=== PATIENT | female | born 1945 | race Hispanic/Latino ===

== ENCOUNTER → 2017-12-27 | Outpatient (CLI) | payer OTHER ==
[2017-12-27 06:56] LABS: HEMATOCRIT 39.7 % (36-48); LYMPHOCYTES % (AUTO) 24.1 % (21.0-51.0); MEAN CORPUSCULAR HEMOGLOBIN 30.8 pg (27.0-33.0); MEAN CORPUSCULAR HGB CONC 34.2 g/dL (32.0-36.0); MEAN CORPUSCULAR VOLUME 90.1 fL (79-99); MONOCYTES % (AUTO) 6.9 % (3.0-13.0); PLATELET COUNT (AUTO) 315 K/uL (130-400); RED CELL DISTRIBUTION WIDTH 15.2 % (11.0-15.5); WHITE BLOOD COUNT (AUTO) 7.6 K/uL (4.8-10.8)
[2017-12-27 07:05] LABS: HEMOGLOBIN A1C 5.5 % (4.0-6.0)
[2017-12-27 07:14] LABS: POTASSIUM 4.1 mmol/L (3.5-5.1)
[2017-12-27 07:37] LABS: ALBUMIN 3.3 g/dL (3.5-5.0); BILIRUBIN,TOTAL 0.4 mg/dL (0.2-1.0); THYROID STIMULATING HORMONE 3.07 uIU/mL (0.36-3.74); TOTAL PROTEIN, SERUM 6.4 g/dL (6.0-8.3); URIC ACID 4.5 mg/dL (2.6-7.2)
[2017-12-27 08:13] LABS: ERYTHROCYTE SEDIMENTATION RATE 11 MM/HR (0-15)
[2017-12-27 08:26] LABS: CRP QUANTITATIVE 21.5 mg/L (0.00-9.0)
== END ==
LOC: LAB 10:00
PROVIDERS: ATTEND Internal Medicine
DX: I10 Essential (primary) hypertension (principal); E11.9 Type 2 diabetes mellitus without complications; E78.5 Hyperlipidemia, unspecified; E03.9 Hypothyroidism, unspecified
CPT/HCPCS: 36415; 80053; 80061; 82043; 83036; 84443; 84550; 85025; 85651; 86140

== ENCOUNTER → 2018-02-11 | Outpatient (CLI) | payer OTHER ==
[2018-02-11 06:44] LABS: EOSINOPHILS % (AUTO) 1.5 % (0.0-8.0); LYMPHOCYTES % (AUTO) 26.6 % (21.0-51.0); MEAN CORPUSCULAR HEMOGLOBIN 30.6 pg (27.0-33.0); MEAN CORPUSCULAR HGB CONC 33.8 g/dL (32.0-36.0); MEAN CORPUSCULAR VOLUME 90.6 fL (79-99); MONOCYTES % (AUTO) 7.5 % (3.0-13.0); NEUTROPHILS % (AUTO) 63.4 % (40.0-77.0); PLATELET COUNT (AUTO) 283 K/uL (130-400); RED BLOOD CELL COUNT(AUTO) 4.42 MIL/uL (4.00-5.50); RED CELL DISTRIBUTION WIDTH 14.8 % (11.0-15.5)
[2018-02-11 07:29] LABS: CREATININE 0.9 mg/dL (0.5-1.5); POTASSIUM 3.7 mmol/L (3.5-5.1)
[2018-02-11 07:44] LABS: ERYTHROCYTE SEDIMENTATION RATE 10 MM/HR (0-15)
[2018-02-11 08:43] LABS: HIGH SENSITIVITY CRP 8.01 mg/L (0.0-3.0)
== END | disposition home or self-care (01) ==
LOC: LAB 02-10 10:12
PROVIDERS: ATTEND Internal Medicine
DX: M35.3 Polymyalgia rheumatica (principal); R79.82 Elevated C-reactive protein (CRP)
CPT/HCPCS: 36415; 80048; 85025; 85651; 86141

== ENCOUNTER → 2018-06-06 | Outpatient (CLI) | payer OTHER ==
[2018-06-06 13:24] LABS: THYROID STIMULATING HORMONE 1.61 uIU/mL (0.36-3.74)
== END | disposition home or self-care (01) ==
LOC: LAB 11:55
PROVIDERS: ATTEND Internal Medicine
DX: E78.5 Hyperlipidemia, unspecified (principal); E03.9 Hypothyroidism, unspecified; E11.9 Type 2 diabetes mellitus without complications; I10 Essential (primary) hypertension; Z90.710 Acquired absence of both cervix and uterus
CPT/HCPCS: 36415; 80061; 84436; 84439; 84443; 86376

== ENCOUNTER → 2018-06-08 | Outpatient (CLI) | payer OTHER ==
[2018-06-08 09:06] LABS: BASOPHILS % (AUTO) 0.7 % (0.0-5.0); EOSINOPHILS % (AUTO) 6.8 % (0.0-8.0); HEMATOCRIT 39.1 % (36-48); LYMPHOCYTES % (AUTO) 13.1 % (21.0-51.0); MEAN CORPUSCULAR HEMOGLOBIN 30.5 pg (27.0-33.0); MEAN CORPUSCULAR HGB CONC 32.7 g/dL (32.0-36.0); MEAN CORPUSCULAR VOLUME 93.2 fL (79-99); MONOCYTES % (AUTO) 8.1 % (3.0-13.0); NEUTROPHILS % (AUTO) 71.3 % (40.0-77.0); PLATELET COUNT (AUTO) 315 K/uL (130-400); RED CELL DISTRIBUTION WIDTH 13.6 % (11.0-15.5); WHITE BLOOD COUNT (AUTO) 6.9 K/uL (4.8-10.8)
[2018-06-08 09:23] LABS: ALBUMIN 2.9 g/dL (3.5-5.0); BILIRUBIN,TOTAL 0.5 mg/dL (0.2-1.0); CREATININE 0.8 mg/dL (0.5-1.5); TOTAL PROTEIN, SERUM 6.4 g/dL (6.0-8.3)
== END | disposition home or self-care (01) ==
LOC: LAB 08:35
PROVIDERS: ATTEND Internal Medicine
DX: M15.9 Polyosteoarthritis, unspecified (principal); G47.09 Other insomnia; R53.83 Other fatigue; I10 Essential (primary) hypertension; E11.9 Type 2 diabetes mellitus without complications; E78.5 Hyperlipidemia, unspecified
CPT/HCPCS: 36415; 80053; 82607; 85025

== ENCOUNTER → 2018-07-05 | Outpatient (CLI) | payer OTHER | END | disposition home or self-care (01) | LOC: OIH 14:51 | PROVIDERS: ATTEND Internal Medicine Cardiovascular Disease | DX: Z13.6 Encounter for screening for cardiovascular disorders (principal) | CPT/HCPCS: 75571 ==

== ENCOUNTER → 2018-08-15 | Outpatient (CLI) | payer OTHER ==
[2018-08-15 09:34] LABS: ALBUMIN 3.6 g/dL (3.5-5.0)
[2018-08-15 09:38] LABS: BILIRUBIN,TOTAL 0.6 mg/dL (0.2-1.0); CREATININE 0.9 mg/dL (0.5-1.5); POTASSIUM 3.9 mmol/L (3.5-5.1); T4 (THYROXINE) 11.6 mcg/dL (4.7-13.3); THYROID STIMULATING HORMONE 4.69 uIU/mL (0.36-3.74); TOTAL PROTEIN, SERUM 6.6 g/dL (6.0-8.3)
== END | disposition home or self-care (01) ==
LOC: RAH 08:19
PROVIDERS: ATTEND Internal Medicine Endocrinology, Diabetes & Metabolism
DX: E04.1 Nontoxic single thyroid nodule (principal); E55.9 Vitamin D deficiency, unspecified; M81.8 Other osteoporosis without current pathological fracture
CPT/HCPCS: 36415; 76536; 80053; 82306; 84436; 84443

== ENCOUNTER → 2018-10-27 | Outpatient (CLI) | payer OTHER ==
[2018-10-27 13:43] LABS: BASOPHILS % (AUTO) 1.4 % (0.0-5.0); EOSINOPHILS % (AUTO) 1.9 % (0.0-8.0); HEMATOCRIT 38.5 % (36-48); LYMPHOCYTES % (AUTO) 21.6 % (21.0-51.0); MONOCYTES % (AUTO) 7.4 % (3.0-13.0); NEUTROPHILS % (AUTO) 67.7 % (40.0-77.0); PLATELET COUNT (AUTO) 258 K/uL (130-400); RED BLOOD CELL COUNT(AUTO) 4.24 MIL/uL (4.00-5.50); RED CELL DISTRIBUTION WIDTH 14.3 % (11.0-15.5); WHITE BLOOD COUNT (AUTO) 8.4 K/uL (4.8-10.8)
[2018-10-27 14:05] LABS: ALBUMIN 3.4 g/dL (3.5-5.0); BILIRUBIN,TOTAL 0.4 mg/dL (0.2-1.0); CREATININE 0.9 mg/dL (0.5-1.5); POTASSIUM 3.7 mmol/L (3.5-5.1); THYROID STIMULATING HORMONE 2.06 uIU/mL (0.36-3.74); TOTAL PROTEIN, SERUM 6.5 g/dL (6.0-8.3)
== END | disposition home or self-care (01) ==
LOC: LAB 13:04
PROVIDERS: ATTEND Internal Medicine
DX: I10 Essential (primary) hypertension (principal); E78.5 Hyperlipidemia, unspecified; E03.9 Hypothyroidism, unspecified
CPT/HCPCS: 36415; 80053; 80061; 82043; 83036; 84443; 85025

== ENCOUNTER → 2018-11-16 | Outpatient (CLI) | payer OTHER ==
[2018-11-16 08:12] LABS: ALBUMIN 3.7 g/dL (3.5-5.0); CREATININE 0.8 mg/dL (0.5-1.5); POTASSIUM 4.1 mmol/L (3.5-5.1); THYROID STIMULATING HORMONE 0.63 uIU/mL (0.36-3.74)
== END | disposition home or self-care (01) ==
LOC: LAB 11-15 09:28
PROVIDERS: ATTEND Internal Medicine Endocrinology, Diabetes & Metabolism
DX: E03.8 Other specified hypothyroidism (principal); E55.9 Vitamin D deficiency, unspecified; M81.8 Other osteoporosis without current pathological fracture
CPT/HCPCS: 36415; 80069; 82306; 84439; 84443

== ENCOUNTER → 2019-01-19 | Outpatient (CLI) | payer OTHER ==
[2019-01-19 06:49] LABS: BASOPHILS % (AUTO) 0.9 % (0.0-5.0); EOSINOPHILS % (AUTO) 0.3 % (0.0-8.0); HEMATOCRIT 39.9 % (36-48); LYMPHOCYTES % (AUTO) 12.7 % (21.0-51.0); MEAN CORPUSCULAR HGB CONC 33.4 g/dL (32.0-36.0); MEAN CORPUSCULAR VOLUME 89.9 fL (79-99); MONOCYTES % (AUTO) 5.8 % (3.0-13.0); NEUTROPHILS % (AUTO) 80.3 % (40.0-77.0); PLATELET COUNT (AUTO) 255 K/uL (130-400); RED BLOOD CELL COUNT(AUTO) 4.44 MIL/uL (4.00-5.50); RED CELL DISTRIBUTION WIDTH 14.3 % (11.0-15.5); WHITE BLOOD COUNT (AUTO) 6.8 K/uL (4.8-10.8)
[2019-01-19 06:59] LABS: HEMOGLOBIN A1C 5.7 % (4.0-6.0)
[2019-01-19 07:28] LABS: ALBUMIN 3.4 g/dL (3.5-5.0); BILIRUBIN,DIRECT 0.1 mg/dL (0.0-0.3); BILIRUBIN,TOTAL 0.6 mg/dL (0.2-1.0); CREATININE 0.9 mg/dL (0.5-1.5); POTASSIUM 4.1 mmol/L (3.5-5.1); TOTAL PROTEIN, SERUM 6.7 g/dL (6.0-8.3)
== END | disposition home or self-care (01) ==
LOC: LAB 01-18 10:08
PROVIDERS: ATTEND Internal Medicine
DX: E03.9 Hypothyroidism, unspecified (principal); I10 Essential (primary) hypertension
CPT/HCPCS: 36415; 80053; 80061; 80076; 82043; 82306; 82607; 83036; 85025

== ENCOUNTER → 2019-02-20 | Outpatient (CLI) | payer OTHER | END | disposition home or self-care (01) | LOC: RAH 12:15 | PROVIDERS: ATTEND Internal Medicine Endocrinology, Diabetes & Metabolism | DX: E04.1 Nontoxic single thyroid nodule (principal); E03.8 Other specified hypothyroidism; E55.9 Vitamin D deficiency, unspecified; M81.8 Other osteoporosis without current pathological fracture | CPT/HCPCS: 76536 ==

== ENCOUNTER → 2019-02-21 | Outpatient (CLI) | payer OTHER ==
[2019-02-21 08:08] LABS: ALBUMIN 3.6 g/dL (3.5-5.0); CREATININE 0.8 mg/dL (0.5-1.5); PHOSPHORUS 3.6 mg/dL (2.5-4.9); POTASSIUM 4.7 mmol/L (3.5-5.1); THYROID STIMULATING HORMONE 1.72 uIU/mL (0.36-3.74)
== END | disposition home or self-care (01) ==
LOC: RAH 10:00
PROVIDERS: ATTEND Internal Medicine Endocrinology, Diabetes & Metabolism
DX: M81.8 Other osteoporosis without current pathological fracture (principal); E03.8 Other specified hypothyroidism; E55.9 Vitamin D deficiency, unspecified
CPT/HCPCS: 36415; 80069; 82306; 84439; 84443

== ENCOUNTER → 2019-04-28 | Outpatient (CLI) | payer OTHER ==
[2019-04-28 07:58] LABS: BASOPHILS % (AUTO) 3.2 % (0.0-5.0); EOSINOPHILS % (AUTO) 0.8 % (0.0-8.0); HEMATOCRIT 41.2 % (36-48); HEMOGLOBIN A1C 5.5 % (4.0-6.0); LYMPHOCYTES % (AUTO) 11.2 % (21.0-51.0); MEAN CORPUSCULAR HEMOGLOBIN 29.4 pg (27.0-33.0); MEAN CORPUSCULAR HGB CONC 32.6 g/dL (32.0-36.0); MEAN CORPUSCULAR VOLUME 90.3 fL (79-99); MONOCYTES % (AUTO) 3.9 % (3.0-13.0); NEUTROPHILS % (AUTO) 80.9 % (40.0-77.0); PLATELET COUNT (AUTO) 275 K/uL (130-400); RED BLOOD CELL COUNT(AUTO) 4.56 MIL/uL (4.00-5.50); WHITE BLOOD COUNT (AUTO) 7.2 K/uL (4.8-10.8)
[2019-04-28 08:04] LABS: ALBUMIN 3.6 g/dL (3.5-5.0); BILIRUBIN,DIRECT 0.1 mg/dL (0.0-0.3); BILIRUBIN,TOTAL 0.7 mg/dL (0.2-1.0); TOTAL PROTEIN, SERUM 6.8 g/dL (6.0-8.3)
== END | disposition home or self-care (01) ==
LOC: LAB 04-27 11:02
PROVIDERS: ATTEND Internal Medicine
DX: E03.9 Hypothyroidism, unspecified (principal); E55.9 Vitamin D deficiency, unspecified; E78.5 Hyperlipidemia, unspecified; D72.820 Lymphocytosis (symptomatic); I10 Essential (primary) hypertension
CPT/HCPCS: 36415; 80061; 80076; 82043; 83036; 84443; 85025

== ENCOUNTER → 2019-06-22 | Outpatient (CLI) | payer OTHER ==
[2019-06-22 08:26] LABS: ALBUMIN 3.4 g/dL (3.5-5.0); CREATININE 0.8 mg/dL (0.5-1.5); PHOSPHORUS 3.3 mg/dL (2.5-4.9); POTASSIUM 3.5 mmol/L (3.5-5.1); T4 (THYROXINE) 11.3 ug/dL (4.7-13.3); THYROID STIMULATING HORMONE 1.36 uIU/mL (0.36-3.74)
== END | disposition home or self-care (01) ==
LOC: LAB 06-21 10:47
PROVIDERS: ATTEND Internal Medicine Endocrinology, Diabetes & Metabolism
DX: E03.8 Other specified hypothyroidism (principal); E55.9 Vitamin D deficiency, unspecified; M85.9 Disorder of bone density and structure, unspecified
CPT/HCPCS: 36415; 80069; 82306; 84436; 84439; 84443

== ENCOUNTER → 2019-07-10 | Outpatient (CLI) | payer OTHER | END | disposition home or self-care (01) | LOC: RAH 10:20 | PROVIDERS: ATTEND Internal Medicine | DX: Z12.31 Encounter for screening mammogram for malignant neoplasm of breast (principal) | CPT/HCPCS: 77067 ==

== ENCOUNTER → 2019-07-28 | Outpatient (CLI) | payer OTHER ==
[2019-07-28 07:53] LABS: BASOPHILS % (AUTO) 0.9 % (0.0-5.0); EOSINOPHILS % (AUTO) 1.3 % (0.0-8.0); HEMATOCRIT 41.3 % (36-48); LYMPHOCYTES % (AUTO) 19.6 % (21.0-51.0); MEAN CORPUSCULAR HEMOGLOBIN 29.2 pg (27.0-33.0); MEAN CORPUSCULAR HGB CONC 32.6 g/dL (32.0-36.0); MEAN CORPUSCULAR VOLUME 89.8 fL (79-99); MONOCYTES % (AUTO) 7.1 % (3.0-13.0); NEUTROPHILS % (AUTO) 71.1 % (40.0-77.0); PLATELET COUNT (AUTO) 270 K/uL (130-400); RED CELL DISTRIBUTION WIDTH 15.1 % (11.0-15.5); WHITE BLOOD COUNT (AUTO) 8.4 K/uL (4.8-10.8)
[2019-07-28 08:14] LABS: ALBUMIN 3.5 g/dL (3.5-5.0); BILIRUBIN,TOTAL 0.7 mg/dL (0.2-1.0); CREATININE 0.9 mg/dL (0.5-1.5); POTASSIUM 4.3 mmol/L (3.5-5.1); THYROID STIMULATING HORMONE 3.4 uIU/mL (0.36-3.74); TOTAL PROTEIN, SERUM 6.7 g/dL (6.0-8.3)
[2019-07-28 09:00] LABS: ERYTHROCYTE SEDIMENTATION RATE 5 MM/HR (0-30)
== END | disposition home or self-care (01) ==
LOC: LAB 07-27 11:32
PROVIDERS: ATTEND Internal Medicine
DX: E78.5 Hyperlipidemia, unspecified (principal); M81.0 Age-related osteoporosis without current pathological fracture; M54.2 Cervicalgia
CPT/HCPCS: 36415; 80053; 84443; 85025; 85651; 86140

== ENCOUNTER → 2019-10-26 | Outpatient (CLI) | payer BC, MEDICARE ==
[2019-10-26 10:00] LABS: BASOPHILS % (AUTO) 0.8 % (0.0-5.0); EOSINOPHILS % (AUTO) 2.4 % (0.0-8.0); HEMATOCRIT 39.5 % (36-48); LYMPHOCYTES % (AUTO) 16.7 % (21.0-51.0); MEAN CORPUSCULAR HEMOGLOBIN 28.5 pg (27.0-33.0); MEAN CORPUSCULAR HGB CONC 31.4 g/dL (32.0-36.0); MEAN CORPUSCULAR VOLUME 90.8 fL (79-99); MONOCYTES % (AUTO) 6.5 % (3.0-13.0); NEUTROPHILS % (AUTO) 73.4 % (40.0-77.0); PLATELET COUNT (AUTO) 321 K/uL (130-400); RED BLOOD CELL COUNT(AUTO) 4.35 MIL/uL (4.00-5.50); RED CELL DISTRIBUTION WIDTH 13.7 % (11.0-15.5); WHITE BLOOD COUNT (AUTO) 8.3 K/uL (4.8-10.8)
[2019-10-26 11:03] LABS: ERYTHROCYTE SEDIMENTATION RATE 12 MM/HR (0-30)
== END | disposition home or self-care (01) ==
LOC: LAB 10-25 11:48
PROVIDERS: ATTEND Internal Medicine
DX: I10 Essential (primary) hypertension (principal); M15.9 Polyosteoarthritis, unspecified
CPT/HCPCS: 36415; 85025; 85651; 86140

== ENCOUNTER → 2019-12-21 | Outpatient (CLI) | payer OTHER, MEDICARE ==
[~2019-12-21] MED LIST: APIX2.5T PO; HYDR25TA PO; LEVO112T4 PO; LISI-617 PO; LISI10TA7 PO; METO25 PO
[2019-12-21 08:42] LABS: BASOPHILS % (AUTO) 1.2 % (0.0-5.0); EOSINOPHILS % (AUTO) 3.3 % (0.0-8.0); HEMATOCRIT 39.5 % (36-48); LYMPHOCYTES % (AUTO) 21.7 % (21.0-51.0); MEAN CORPUSCULAR HEMOGLOBIN 28.2 pg (27.0-33.0); MEAN CORPUSCULAR HGB CONC 32.2 g/dL (32.0-36.0); MEAN CORPUSCULAR VOLUME 87.6 fL (79-99); NEUTROPHILS % (AUTO) 66.5 % (40.0-77.0); PLATELET COUNT (AUTO) 308 K/uL (130-400); RED BLOOD CELL COUNT(AUTO) 4.51 MIL/uL (4.00-5.50); RED CELL DISTRIBUTION WIDTH 13.9 % (11.0-15.5); WHITE BLOOD COUNT (AUTO) 6.9 K/uL (4.8-10.8)
[2019-12-21 09:09] LABS: ALBUMIN 3.4 g/dL (3.5-5.0); BILIRUBIN,TOTAL 0.5 mg/dL (0.2-1.0); CREATININE 0.9 mg/dL (0.5-1.5); POTASSIUM 4.1 mmol/L (3.5-5.1); THYROID STIMULATING HORMONE 0.21 uIU/mL (0.36-3.74); TOTAL PROTEIN, SERUM 6.9 g/dL (6.0-8.3)
[2019-12-21 09:19] LABS: CRP QUANTITATIVE 6.1 mg/L (0.00-9.0)
[2019-12-21 09:53] LABS: ERYTHROCYTE SEDIMENTATION RATE 17 MM/HR (0-30)
== END | disposition home or self-care (01) ==
LOC: LAB 08:11
PROVIDERS: ATTEND Internal Medicine
DX: E03.9 Hypothyroidism, unspecified (principal); E78.5 Hyperlipidemia, unspecified; R74.8 Abnormal levels of other serum enzymes
CPT/HCPCS: 36415; 80053; 84439; 84443; 85025; 85651; 86140

== ENCOUNTER 2020-03-15 15:20 | Emergency (ER) | payer OTHER, MEDICARE ==
[2020-03-15] MEDS ORDERED: ACETAMINOPHEN 325 MG TAB ONE (17:02)
[2020-03-15] MEDS ORDERED: CEFTRIAXONE SODIUM 1 GM ONE (18:39)
[2020-03-15] MEDS ORDERED: AZITHROMYCIN 250 MG TABLET PO ONE (18:41)
[2020-03-15] MEDS ORDERED: SODIUM CHLORIDE 0.9% 100 ML IV ONE (18:44)
[2020-03-15] MEDS ORDERED: SODIUM CHLORIDE 0.9% 500ML 500 ML IV ONE (19:48)
== END 2020-03-15 21:00 | disposition home or self-care (01) ==
LOC: EDH 15:20
DX: U07.1 COVID-19 (principal); R53.83 Other fatigue; I10 Essential (primary) hypertension; M19.90 Unspecified osteoarthritis, unspecified site; Z90.710 Acquired absence of both cervix and uterus
CPT/HCPCS: 36415; 71045; 80053; 81001; 82550; 83605; 83874; 83880; 84145; 84484; 85025; 85610; 85730; 87040 ×2; 87088; 87804 ×2; 93005; 96374; 99285; J0696; J7040

== ENCOUNTER 2020-03-18 00:56 | Inpatient (IN) | payer OTHER, MEDICARE ==
[~2020-03-18] VITALS: Ht 154.9 cm; Wt 68.9 kg
[2020-03-18] MEDS ORDERED: ONDANSETRON HCL 4 MG/2 ML VIAL ONE (02:05)
[2020-03-18] MEDS ORDERED: ACETAMINOPHEN EXTRA STRENGTH 500 MG TABLET ONE (02:05)
[2020-03-18 02:11] LABS: BASOPHILS % (AUTO) 0.2 % (0.0-5.0); EOSINOPHILS % (AUTO) 0.2 % (0.0-8.0); HEMATOCRIT 40.3 % (36-48); LYMPHOCYTES % (AUTO) 23.1 % (21.0-51.0); MEAN CORPUSCULAR HEMOGLOBIN 28.3 pg (27.0-33.0); MEAN CORPUSCULAR HGB CONC 33.3 g/dL (32.0-36.0); MONOCYTES % (AUTO) 8.7 % (3.0-13.0); NEUTROPHILS % (AUTO) 67.6 % (40.0-77.0); PLATELET COUNT (AUTO) 191 K/uL (130-400); RED BLOOD CELL COUNT(AUTO) 4.74 MIL/uL (4.00-5.50); RED CELL DISTRIBUTION WIDTH 13.7 % (11.0-15.5); WHITE BLOOD COUNT (AUTO) 4.3 K/uL (4.8-10.8)
[2020-03-18 02:17] LABS: ABG BASE EXCESS -4.1 mmol/L (-2.0-3.0); ABG HCO3 17.7 mmol/L (21.0-28.0); ABG OXYGEN SATURATION 87.1 % (95.0-99.0); ABG PCO2 25 mmHg (32-45)
[2020-03-18 02:24] LABS: INR 0.87 (0.85-1.15); PARTIAL THROMBOPLASTIN TIME 32.1 SEC (26.3-35.5); PROTHROMBIN TIME 9.4 SEC (9.6-11.6)
[2020-03-18 02:25] LABS: CARBON DIOXIDE 26 mmol/L (21-32); CHLORIDE 102 mmol/L (101-111); CREATININE 0.9 mg/dL (0.5-1.5); GLOMERULAR FILTR. RATE CALC 65 mL/min (>60); GLUCOSE,RANDOM 102 mg/dL (70-105); POTASSIUM 3.5 mmol/L (3.5-5.1); SODIUM SERUM 137 mmol/L (136-145); UREA NITROGEN, BLOOD 16 mg/dL (7-18)
[2020-03-18 02:35] LABS: ALANINE AMINOTRANSFERASE 19 U/L (12-78); ALBUMIN 3.3 g/dL (3.5-5.0); ASPARTATE AMINOTRANSFERASE 26 U/L (10-37); BILIRUBIN,TOTAL 0.4 mg/dL (0.2-1.0); CREATINE KINASE, TOTAL 47 U/L (21-232); LIPASE 110 U/L (114-286); MYOGLOBIN 40 ng/mL (10-92); TOTAL PROTEIN, SERUM 6.7 g/dL (6.0-8.3); TROPONIN I < 0.04 ng/mL (0.00-0.06)
[2020-03-18 02:42] LABS: B-TYPE NATRIURETIC PEPTIDE 15 pg/mL (0-100)
[2020-03-18] MEDS ORDERED: IOHEXOL-350 75 ML VIAL IV ONE (03:03)
[2020-03-18] MEDS ORDERED: DOXYCYCLINE 100MG+NS 250ML IV SCH (03:30)
[2020-03-18] MEDS ORDERED: CEFTRIAXONE SODIUM 1 GM IVP SCH (03:30)
[2020-03-18] MEDS ORDERED: DOXYCYCLINE HYCLATE 100 MG TABLET PO ONE (04:10)
[2020-03-18] MEDS ORDERED: GUAIFENESIN-DM 200/20 MG 10 ML PO PRN (04:15)
[2020-03-18] MEDS ORDERED: ACETAMINOPHEN 325 MG TAB PO PRN ×2 (04:15)
[2020-03-18] MEDS ORDERED: NITROGLYCERIN 0.4 MG SL TAB SL PRN (04:15)
[2020-03-18] MEDS ORDERED: DOXYCYCLINE 100MG+NS 250ML 250 ML IV SCH ×2 (05:00→21:00)
[2020-03-18 06:50] LABS: BASOPHILS % (AUTO) 0.3 % (0.0-5.0); HEMATOCRIT 38.5 % (36-48); LYMPHOCYTES % (AUTO) 19.4 % (21.0-51.0); MEAN CORPUSCULAR VOLUME 84.8 fL (79-99); MONOCYTES % (AUTO) 7.3 % (3.0-13.0); NEUTROPHILS % (AUTO) 72.7 % (40.0-77.0); PLATELET COUNT (AUTO) 163 K/uL (130-400); RED BLOOD CELL COUNT(AUTO) 4.54 MIL/uL (4.00-5.50); RED CELL DISTRIBUTION WIDTH 13.6 % (11.0-15.5); WHITE BLOOD COUNT (AUTO) 3.9 K/uL (4.8-10.8)
[2020-03-18 06:51] LABS: ALBUMIN 2.9 g/dL (3.5-5.0); BILIRUBIN,TOTAL 0.4 mg/dL (0.2-1.0); CREATININE 0.7 mg/dL (0.5-1.5); CRP QUANTITATIVE 38.1 mg/L (0.00-9.0); TOTAL PROTEIN, SERUM 5.8 g/dL (6.0-8.3)
[2020-03-18] MEDS ORDERED: AZITHROMYCIN 500MG+NS 250ML 250 ML IV ONE (08:57)
[2020-03-18] MEDS ORDERED: ENOXAPARIN SODIUM 40 MG/0.4 ML SYRINGE SQ ONE (08:57)
[2020-03-18] MEDS ORDERED: CEFTRIAXONE SODIUM 1 GM ONE (08:57)
[2020-03-18] MEDS ORDERED: FAMOTIDINE/PF 20 MG/2 ML VIAL IV ONE (08:58)
[2020-03-18 09:56] LABS: APPEARANCE,URINE Clear (CLEAR); BILIRUBIN,URINE Negative (NEGATIVE); COLOR,URINE Yellow (YELLOW); GLUCOSE, URINE (UA) Negative (NEGATIVE); KETONES,URINE Trace mg/dL (NEGATIVE); LEUKOCYTE ESTERASE ,URINE Negative (NEGATIVE); NITRATE,URINE Negative (NEGATIVE); OCCULT BLOOD,URINE Negative (NEGATIVE); PH,URINE 5.5 (5.0-8.0); PROTEIN,URINE Trace mg/dL (NEGATIVE); UROBILINOGEN,URINE 0.2 mg/dL (0.2-1.0)
[2020-03-18 10:06] LABS: BACTERIA,URINE Rare /HPF (None Seen); RBC,URINE None Seen /HPF (0-1); WBC,URINE 0-1 /HPF (0-1)
[2020-03-18] MEDS ORDERED: METHYLPREDNISOLONE SOD SUCC 40MG/ML 1ML ONE ×2 (11:45→17:35)
[2020-03-18] MEDS ORDERED: POTASSIUM CHLORIDE 10% ELIXIR 20 MEQ/15 ML UDCUP PO PRN (14:00)
[2020-03-18] MEDS ORDERED: LIDOCAINE HCL-MPF 1% 2ML VIAL IV PRN (14:00)
[2020-03-18] MEDS ORDERED: POTASSIUM CHLORIDE 20MEQ/100ML 100 ML IV PRN (14:00)
[2020-03-18] MEDS ORDERED: POTASSIUM CHLORIDE 20 MEQ ERTAB PO PRN (14:00)
[2020-03-18] MEDS ORDERED: POTASSIUM CHLORIDE 20 MEQ ERTAB PO ONE ×2 (15:20→17:35)
[2020-03-18] MEDS: FAMOTIDINE/PF 20 MG/2 ML VIAL IV SCH (17:53)
[2020-03-18] MEDS: ENOXAPARIN SODIUM 40 MG/0.4 ML SYRINGE SQ SCH (17:54)
[2020-03-18] MEDS: METHYLPREDNISOLONE SOD SUCC 40MG/ML 1ML IVP SCH ×2 (17:54→20:46)
[2020-03-18] MEDS: CEFTRIAXONE SODIUM 1 GM IVP SCH (20:46)
[2020-03-18] MEDS: DOXYCYCLINE HYCLATE 100 MG TABLET PO SCH (20:46)
[2020-03-18 21:14] VITALS: BP 152/75
[2020-03-18] MEDS ORDERED: METO25 PO (22:15)
[2020-03-18] MEDS ORDERED: LISI-617 PO (22:17)
[2020-03-18] MEDS ORDERED: LEVO112T4 PO (22:17)
[2020-03-18] MEDS: ONDANSETRON HCL 4 MG/2 ML VIAL IV PRN (22:55)
[2020-03-18] MEDS ORDERED: METOPROLOL TARTRATE 25 MG TAB ONE (22:59)
[2020-03-18 23:03] VITALS: BP 155/77
[2020-03-19 03:00] VITALS: BP 185/95
[2020-03-19 04:28] LABS: HEMATOCRIT 41.1 % (36-48); LYMPHOCYTES % (AUTO) 19.7 % (21.0-51.0); MEAN CORPUSCULAR HEMOGLOBIN 28.3 pg (27.0-33.0); MEAN CORPUSCULAR HGB CONC 33.3 g/dL (32.0-36.0); MEAN CORPUSCULAR VOLUME 84.9 fL (79-99); MONOCYTES % (AUTO) 2.5 % (3.0-13.0); NEUTROPHILS % (AUTO) 77.4 % (40.0-77.0); PLATELET COUNT (AUTO) 193 K/uL (130-400); RED BLOOD CELL COUNT(AUTO) 4.84 MIL/uL (4.00-5.50); RED CELL DISTRIBUTION WIDTH 13.6 % (11.0-15.5); WHITE BLOOD COUNT (AUTO) 2.4 K/uL (4.8-10.8)
[2020-03-19] MEDS ORDERED: HYDRALAZINE HCL 20 MG/ML VIAL IV PRN (05:00)
[2020-03-19 05:26] LABS: ALANINE AMINOTRANSFERASE 24 U/L (12-78); ALBUMIN 3.2 g/dL (3.5-5.0); ASPARTATE AMINOTRANSFERASE 24 U/L (10-37); BILIRUBIN,TOTAL 0.3 mg/dL (0.2-1.0); CARBON DIOXIDE 23 mmol/L (21-32); CHLORIDE 101 mmol/L (101-111); CREATININE 0.8 mg/dL (0.5-1.5); GLOMERULAR FILTR. RATE CALC 75 mL/min (>60); GLUCOSE,RANDOM 163 mg/dL (70-105); LACTATE DEHYDROGENASE 221 U/L (81-234); POTASSIUM 3.8 mmol/L (3.5-5.1); SODIUM SERUM 136 mmol/L (136-145); UREA NITROGEN, BLOOD 10 mg/dL (7-18)
[2020-03-19] MEDS ORDERED: METOPROLOL TARTRATE 25 MG TAB ONE (07:13)
[2020-03-19] MEDS ORDERED: LISINOPRIL 5 MG TABLET ONE (07:14)
[2020-03-19] MEDS: CEFTRIAXONE SODIUM 1 GM IVP SCH (07:19)
[2020-03-19] MEDS: DOXYCYCLINE HYCLATE 100 MG TABLET PO SCH (07:19)
[2020-03-19] MEDS: FAMOTIDINE/PF 20 MG/2 ML VIAL IV SCH (07:19)
[2020-03-19] MEDS: ENOXAPARIN SODIUM 40 MG/0.4 ML SYRINGE SQ SCH (07:20)
[2020-03-19] MEDS ORDERED: LEVOTHYROXINE 112 MCG TABLET PO SCH (07:30)
--- NOTE | 2020-03-19 07:30 | NUR ---
AM ASSESSMENT PT LAYING IN BED. PT UPSET REGARDING ELEVATED BP & HOME MEDICATIONS. HOME MEDS RESUMED @ GIVEN @ THIS TIME. A/O X 3. SOB ON EXERTION. NO DISTRESS NOTED. DENIES CHEST PAIN OR DISCOMFORT. DENIES PALPITATIONS. TELE: SR. DENIES NAUSEA. PT HAVING DIARRHEA. UP AD NAET. INSTRUCTED TO CALL FOR ASSISTANCE. CALL SOPHIE W/IN REACH.
[2020-03-19] MEDS: ONDANSETRON HCL 4 MG/2 ML VIAL IV PRN (08:03)
[2020-03-19] MEDS: METHYLPREDNISOLONE SOD SUCC 40MG/ML 1ML IVP SCH (08:03)
[2020-03-19 08:15] VITALS: BP 163/92
[2020-03-19] MEDS ORDERED: METOPROLOL TARTRATE 25 MG TAB PO SCH (09:00)
[2020-03-19] MEDS ORDERED: LISINOPRIL 5 MG TABLET PO SCH ×2 (09:00→14:30)
--- NOTE | 2020-03-19 11:28 | NUR ---
JOSE J NOTE- INITIAL ASSESSMENT SPOKE TO FAMILY ON PHONE - DAUGHTER [employer] [employer] WHO WILL PROVIDE TRANSPORT- LIVES W DTR, IS EMPLOYED, HAS NOT DME OR CHRONIC LUNG CONDITIONS, DCP HOME Addendum: 03/19/20 at 1136 by INO RAYO RN CM Amended: Links added.
[2020-03-19 11:30] VITALS: BP 153/89
[2020-03-19 12:30] VITALS: BP 155/98
[2020-03-19 14:00] VITALS: BP_SYST 158; BP_SYST 161; BP_DIAS 84; BP_DIAS 92
--- NOTE | 2020-03-19 14:11 | NUR ---
MD NOTIFICATION DR DE GUZMAN NOTIFIED OF BP RECHECK 161/84 AFTER LISINOPRIL 5 MG PO & HYDROCHLOROTHIAZIDE 12.5 MG PO WERE GIVEN EARLIER.
[2020-03-19] MEDS ORDERED: HYDROCHLOROTHIAZIDE 25 MG TABLET PO SCH ×2 (14:30)
--- NOTE | 2020-03-19 15:16 | NUR ---
MD NOTIFICATION BP RECHECK 149/98 AFTER 2ND DOSE OF HCT 12.5 MG PO GIVEN; DR DE GUZMAN NOTIFIED.
[2020-03-19 15:30] VITALS: BP 149/98
--- NOTE | 2020-03-19 15:30 | NUR ---
DISCHARGE PT INFORMED DR DE GUZMAN PLANS TO DC PT HOME TODAY, PENDING DC ORDER TO BE ENTERED. TELE SANDRA REMOVED @ THIS TIME. IV DC'D.
[2020-03-19] MEDS ORDERED: LISI10TA7 PO (16:48)
[2020-03-19] MEDS ORDERED: APIX2.5T PO (16:48)
[2020-03-19] MEDS ORDERED: HYDR25TA PO (16:48)
--- NOTE | 2020-03-19 17:23 | NUR ---
DISCHARGE VERBAL & WRITTEN DISCHARGE INSTRUCTIONS REVIEWED & GIVEN TO PT. QUESTIONS ENCOURAGED & CLARIFIED. PROPER CARE, MGT, & PREVENTION OF COVID/CHEST PAIN/SOB REVIEWED. NEW PRESCRIBED MEDICATIONS REVIEWED. PT INFORMED PRESCRIPTION TRANSMITTED TO PHARMACY IN FILE. PT TO GATHER PERSONAL BELONGINGS. WILL NOTIFY STAFF FAMILY ARRIVES TO HOSPITAL TO TAKE PT HOME.
--- NOTE | 2020-03-19 17:50 | NUR ---
DISCHARGE FAMILY HERE TO TAKE PT HOME. PT TAKEN TO PRIVATE VEHICLE VIA WC BY Danis VIVAS RN.
[2020-03-20] MEDS ORDERED: LEVOTHYROXINE 112 MCG TABLET PO SCH (06:30)
== END 2020-03-19 17:50 | disposition home or self-care (01) | DRG 177 ==
LOC: EDH 00:56 → EDHIP 04:08 → 2AH 20:37
PROVIDERS: ADMIT Internal Medicine; ATTEND Internal Medicine
DX: U07.1 COVID-19 (principal); J12.89 Other viral pneumonia; E03.9 Hypothyroidism, unspecified; R07.89 Other chest pain; I10 Essential (primary) hypertension; M19.90 Unspecified osteoarthritis, unspecified site; Z90.710 Acquired absence of both cervix and uterus
CPT/HCPCS: 36415; 36600; 71045; 71275; 80053; 81001; 82550; 82728; 82803; 83605; 83615; 83690; 83874; 83880; 84145; 84484; 85025; 85378; 85610; 85730; 86140; 87040; 87088; 93005; 99291; G0378; J0360; J0456; J0696; J1650; J2405; J2920; J3490; Q9967; U0003

== ENCOUNTER → 2020-04-12 | Outpatient (CLI) | payer OTHER, MEDICARE ==
[~2020-04-12] MED LIST changes: -LISI-617 PO
[2020-04-12 11:46] LABS: ALBUMIN 3.2 g/dL (3.5-5.0); CREATININE 0.9 mg/dL (0.5-1.5); PHOSPHORUS 3.2 mg/dL (2.5-4.9); POTASSIUM 3.7 mmol/L (3.5-5.1); T4 (THYROXINE) 11.6 ug/dL (4.7-13.3); THYROID STIMULATING HORMONE 0.27 uIU/mL (0.36-3.74)
== END | disposition home or self-care (01) ==
LOC: RAH 10:43
PROVIDERS: ATTEND Internal Medicine Endocrinology, Diabetes & Metabolism
DX: E04.1 Nontoxic single thyroid nodule (principal); E55.9 Vitamin D deficiency, unspecified; E03.8 Other specified hypothyroidism; M81.8 Other osteoporosis without current pathological fracture; E04.9 Nontoxic goiter, unspecified
CPT/HCPCS: 36415; 76536; 80069; 82306; 84436; 84443

== ENCOUNTER → 2020-12-05 | Outpatient (CLI) | payer OTHER, MEDICARE ==
[~2020-12-05] MED LIST changes: +LISI10TA24 PO; -LISI10TA7 PO
[2020-12-05 11:45] LABS: ALBUMIN 3.9 g/dL (3.5-5.0); BILIRUBIN,DIRECT 0.1 mg/dL (0.0-0.3); BILIRUBIN,TOTAL 0.7 mg/dL (0.2-1.0); PHOSPHORUS 3.3 mg/dL (2.5-4.9); POTASSIUM 4.7 mmol/L (3.5-5.1); THYROID STIMULATING HORMONE 5.45 uIU/mL (0.36-3.74); TOTAL PROTEIN, SERUM 8.1 g/dL (6.0-8.3)
== END | disposition home or self-care (01) ==
LOC: LAB 10:05
PROVIDERS: ATTEND Internal Medicine Endocrinology, Diabetes & Metabolism
DX: E03.8 Other specified hypothyroidism (principal); E55.9 Vitamin D deficiency, unspecified; M81.8 Other osteoporosis without current pathological fracture
CPT/HCPCS: 36415; 80069; 80076; 82306; 84439; 84443

== ENCOUNTER → 2021-04-25 | Outpatient (CLI) | payer BC, MEDICARE ==
[2021-04-25 09:58] LABS: ALBUMIN 3.6 g/dL (3.5-5.0); BILIRUBIN,DIRECT 0.1 mg/dL (0.0-0.3); BILIRUBIN,TOTAL 0.6 mg/dL (0.2-1.0); CREATININE 0.8 mg/dL (0.5-1.5); PHOSPHORUS 3.3 mg/dL (2.5-4.9); POTASSIUM 3.8 mmol/L (3.5-5.1); THYROID STIMULATING HORMONE 1.9 uIU/mL (0.36-3.74); TOTAL PROTEIN, SERUM 6.7 g/dL (6.0-8.3)
== END | disposition home or self-care (01) ==
LOC: RAH 08:53
PROVIDERS: ATTEND Internal Medicine
DX: Z12.31 Encounter for screening mammogram for malignant neoplasm of breast (principal); E03.8 Other specified hypothyroidism
CPT/HCPCS: 36415; 77067; 80069; 80076; 82306; 84439; 84443

== ENCOUNTER → 2021-10-21 | Outpatient (CLI) | payer OTHER, MEDICARE ==
[2021-10-21 07:53] LABS: ALBUMIN 3.6 g/dL (3.5-5.0); CREATININE 0.8 mg/dL (0.5-1.5); PHOSPHORUS 3.7 mg/dL (2.5-4.9); POTASSIUM 4.3 mmol/L (3.5-5.1); THYROID STIMULATING HORMONE 0.94 uIU/mL (0.36-3.74)
== END | disposition home or self-care (01) ==
LOC: LAB 07:00
PROVIDERS: ATTEND Internal Medicine Endocrinology, Diabetes & Metabolism
DX: E03.8 Other specified hypothyroidism (principal); E55.9 Vitamin D deficiency, unspecified; M85.9 Disorder of bone density and structure, unspecified
CPT/HCPCS: 36415; 80069; 82306; 84439; 84443

== ENCOUNTER → 2022-10-06 | Outpatient (CLI) | payer OTHER, MEDICARE ==
[2022-10-06 07:29] LABS: BASOPHILS % (AUTO) 0.6 % (0.0-5.0); EOSINOPHILS % (AUTO) 2.6 % (0.0-8.0); HEMATOCRIT 44.4 % (36-48); LYMPHOCYTES % (AUTO) 23.4 % (21.0-51.0); MEAN CORPUSCULAR HEMOGLOBIN 31.6 pg (27.0-33.0); MEAN CORPUSCULAR HGB CONC 33.3 g/dL (32.0-36.0); MEAN CORPUSCULAR VOLUME 94.9 fL (79-99); MONOCYTES % (AUTO) 7.4 % (3.0-13.0); NEUTROPHILS % (AUTO) 65.2 % (40.0-77.0); PLATELET COUNT (AUTO) 212 K/uL (130-400); RED BLOOD CELL COUNT(AUTO) 4.68 MIL/uL (4.00-5.50); RED CELL DISTRIBUTION WIDTH 12.9 % (11.0-15.5); WHITE BLOOD COUNT (AUTO) 7.2 K/uL (4.8-10.8)
[2022-10-06 07:55] LABS: ALBUMIN 3.2 g/dL (3.5-5.0); CREATININE 0.9 mg/dL (0.5-1.5); PHOSPHORUS 2.8 mg/dL (2.5-4.9); POTASSIUM 3.7 mmol/L (3.5-5.1); THYROID STIMULATING HORMONE 7.83 uIU/mL (0.36-3.74); TOTAL PROTEIN, SERUM 6.5 g/dL (6.0-8.3)
== END | disposition home or self-care (01) ==
LOC: LAB 06:40
PROVIDERS: ATTEND Internal Medicine
DX: I10 Essential (primary) hypertension (principal); E03.9 Hypothyroidism, unspecified
CPT/HCPCS: 36415; 80053; 82306; 84100; 84439; 84443; 85025

== ENCOUNTER 2022-11-26 07:26 | Emergency (ER) | payer OTHER, MEDICARE ==
[~2022-11-26] VITALS: Ht 157.5 cm; Wt 74.8 kg
[2022-11-26 07:32] VITALS: BP 129/81
== END 2022-11-26 08:19 | disposition home or self-care (01) ==
LOC: EDH 07:26
DX: S20.219A Contusion of unspecified front wall of thorax, initial encounter (principal); Y92.488 Other paved roadways as the place of occurrence of the external cause; V89.2XXA Person injured in unspecified motor-vehicle accident, traffic, initial encounter; Y93.I9 Activity, other involving external motion; Y99.8 Other external cause status; Z79.899 Other long term (current) drug therapy
CPT/HCPCS: 71045; 93005

== ENCOUNTER → 2023-01-13 | Outpatient (CLI) | payer OTHER, MEDICARE ==
[2023-01-13 09:40] LABS: ALBUMIN 3.7 g/dL (3.5-5.0); CREATININE 0.9 mg/dL (0.5-1.5); PHOSPHORUS 3.9 mg/dL (2.5-4.9); POTASSIUM 4.1 mmol/L (3.5-5.1); T4 (THYROXINE) 12.9 ug/dL (4.7-13.3); THYROID STIMULATING HORMONE 1.65 uIU/mL (0.36-3.74)
== END | disposition home or self-care (01) ==
LOC: LAB 07:25
PROVIDERS: ATTEND Internal Medicine Endocrinology, Diabetes & Metabolism
DX: M81.8 Other osteoporosis without current pathological fracture (principal); E03.8 Other specified hypothyroidism; E50.3 Vitamin A deficiency with corneal ulceration and xerosis
CPT/HCPCS: 36415; 80069; 82306; 84436; 84443

== ENCOUNTER 2023-02-28 19:00 | Emergency (ER) | payer OTHER, MEDICARE ==
[~2023-02-28] VITALS: Ht 154.9 cm; Wt 74.8 kg
[2023-02-28 19:31] VITALS: BP 172/97
[2023-02-28 19:35] LABS: BASOPHILS % (AUTO) 0.9 % (0.0-5.0); EOSINOPHILS % (AUTO) 1.7 % (0.0-8.0); HEMATOCRIT 45.2 % (36-48); LYMPHOCYTES % (AUTO) 16.1 % (21.0-51.0); MEAN CORPUSCULAR HEMOGLOBIN 31.2 pg (27.0-33.0); MEAN CORPUSCULAR HGB CONC 33.8 g/dL (32.0-36.0); MEAN CORPUSCULAR VOLUME 92.2 fL (79-99); MONOCYTES % (AUTO) 7.4 % (3.0-13.0); NEUTROPHILS % (AUTO) 73.7 % (40.0-77.0); PLATELET COUNT (AUTO) 171 K/uL (130-400); RED CELL DISTRIBUTION WIDTH 12.6 % (11.0-15.5); WHITE BLOOD COUNT (AUTO) 5.4 K/uL (4.8-10.8)
[2023-02-28 19:47] LABS: CREATININE 0.9 mg/dL (0.5-1.5); POTASSIUM 3.6 mmol/L (3.5-5.1)
[2023-02-28 19:52] LABS: ALBUMIN 3.8 g/dL (3.5-5.0); TOTAL PROTEIN, SERUM 7.2 g/dL (6.0-8.3)
[2023-02-28] MEDS ORDERED: VALA10002 PO (20:11)
[2023-02-28] MEDS ORDERED: IBUP-1493 PO (20:11)
[2023-02-28] MEDS ORDERED: GABA300C PO (20:11)
== END 2023-02-28 20:31 | disposition home or self-care (01) ==
LOC: EDH 19:00
DX: B02.9 Zoster without complications (principal); Z79.899 Other long term (current) drug therapy; Z98.890 Other specified postprocedural states
CPT/HCPCS: 36415; 71045; 80053; 84484; 85025; 93005

== ENCOUNTER 2023-03-02 22:57 | Inpatient (IN) | payer OTHER, MEDICARE ==
[~2023-03-02] VITALS: Ht 162.6 cm; Wt 79.0 kg
[~2023-03-02 22:57] MED LIST changes: +GABA300C PO; +IBUP-1493 PO; +VALA10002 PO
[2023-03-02] MEDS ORDERED: NOREPINEPHRINE BITARTRATE 1 MG/1 ML ML IV ONE (23:04)
[2023-03-02] MEDS ORDERED: PHENYLEPHRINE HCL 10 MG/ML 1ML VIAL IV ONE (23:17)
[2023-03-02] MEDS ORDERED: FENTANYL 1000MCG+NS 100ML 100 ML IV ONE (23:29)
[2023-03-02] MEDS ORDERED: MIDAZOLAM HCL 5 MG/ML 2ML VIAL IV ONE (23:29)
[2023-03-02] MEDS: FENTANYL 1000MCG+NS 100ML 100 ML IV SCH (23:29)
[2023-03-02] MEDS: MIDAZOLAM 50MG-0.9% NS 50ML 50 ML IV SCH (23:29)
[2023-03-02] MEDS ORDERED: NOREPINEPHRIN 4MG/NS 250ML 250 ML IV SCH (23:30)
[2023-03-02] MEDS ORDERED: ETOMIDATE 20MG VIAL IVP SCH (23:30)
[2023-03-02] MEDS ORDERED: ROCURONIUM BROMIDE 100 MG in 0.9%NACL 100ML 100 ML IV SCH (23:30)
[2023-03-02] MEDS ORDERED: ZOSYN 3.375GM+NS 50ML 50 ML IVPB STA (23:47)
[2023-03-02 23:48] LABS: BASOPHILS % (AUTO) 0.7 % (0.0-5.0); EOSINOPHILS % (AUTO) 0.8 % (0.0-8.0); HEMATOCRIT 38.8 % (36-48); LYMPHOCYTES % (AUTO) 23.4 % (21.0-51.0); MEAN CORPUSCULAR HEMOGLOBIN 30.9 pg (27.0-33.0); MEAN CORPUSCULAR HGB CONC 33.8 g/dL (32.0-36.0); MEAN CORPUSCULAR VOLUME 91.5 fL (79-99); MONOCYTES % (AUTO) 8.6 % (3.0-13.0); NEUTROPHILS % (AUTO) 65.9 % (40.0-77.0); PLATELET COUNT (AUTO) 183 K/uL (130-400); RED BLOOD CELL COUNT(AUTO) 4.24 MIL/uL (4.00-5.50); RED CELL DISTRIBUTION WIDTH 12.4 % (11.0-15.5); WHITE BLOOD COUNT (AUTO) 8.4 K/uL (4.8-10.8)
[2023-03-02 23:50] LABS: BILIRUBIN,URINE NEGATIVE (NEGATIVE); COLOR,URINE LIGHT-YELLOW (YELLOW); GLUCOSE, URINE (UA) NEGATIVE (NEGATIVE); KETONES,URINE NEGATIVE (NEGATIVE); LEUKOCYTE ESTERASE ,URINE NEGATIVE Leu/uL (NEGATIVE); NITRATE,URINE NEGATIVE (NEGATIVE); OCCULT BLOOD,URINE NEGATIVE (NEGATIVE); PH,URINE 5.5 (5.0-8.0); PROTEIN,URINE 10 mg/dL (NEGATIVE); UROBILINOGEN,URINE 0.2 mg/dL (0.2-1.0)
[2023-03-03] VITALS (52 sets, daily range): BP systolic 80–184; BP diastolic 39–79
[2023-03-03] LABS: CREATININE 1.6 mg/dL (0.5-1.5); POTASSIUM 3.3 mmol/L (3.5-5.1)
[2023-03-03] MEDS ORDERED: VANCOMYCIN 1G/250ML KIT 250 ML IV ONE
[2023-03-03 00:06] LABS: ALBUMIN 2.7 g/dL (3.5-5.0); APPEARANCE,URINE CLEAR (CLEAR); TOTAL PROTEIN, SERUM 5.5 g/dL (6.0-8.3)
[2023-03-03 00:25] LABS: ABG BASE EXCESS -12.8 mmol/L (-2.0-3.0); ABG HCO3 9.6 mmol/L (21.0-28.0); ABG OXYGEN SATURATION 90.1 % (95.0-99.0); ABG PCO2 17 mmHg (32-45)
[2023-03-03] MEDS ORDERED: IOHEXOL 350 MG/ML 100ML INFUS..BTL IV ONE ×2 (00:34→01:19)
[2023-03-03] MEDS ORDERED: ACYCLOVIR IV SCH (02:30)
[2023-03-03] MEDS ORDERED: HYDROCORTISONE SOD SUCCINATE 100 MG/2 ML VIAL IM SCH (02:30)
[2023-03-03] MEDS ORDERED: NACL 0.9% IV SCH (02:30)
[2023-03-03 02:38] LABS: ABG BASE EXCESS -9.1 mmol/L (-2.0-3.0); ABG HCO3 15.4 mmol/L (21.0-28.0); ABG OXYGEN SATURATION 99.7 % (95.0-99.0); ABG PCO2 30 mmHg (32-45)
[2023-03-03] MEDS: FENTANYL 1000MCG+NS 100ML 100 ML IV SCH ×5 (02:49→20:09)
[2023-03-03] MEDS ORDERED: 0.9%NACL 1000ML 1,000 ML IV STA ×2 (02:50→11:07)
[2023-03-03] MEDS: PHARMACY COMMUNICATION MISC SCH ×2 (03:00→07:45)
[2023-03-03 07:10] LABS: THYROID STIMULATING HORMONE 0.93 uIU/mL (0.36-3.74)
[2023-03-03 07:13] LABS: ABG BASE EXCESS -8.3 mmol/L (-2.0-3.0); ABG HCO3 17.7 mmol/L (21.0-28.0); ABG OXYGEN SATURATION 99.4 % (95.0-99.0); ABG PCO2 38 mmHg (32-45)
[2023-03-03] MEDS: POTASSIUM CHLORIDE 20MEQ/100ML 100 ML IV PRN (07:27)
[2023-03-03] MEDS ORDERED: LEVOTHYROXINE 112 MCG TABLET PO SCH (07:30)
[2023-03-03] MEDS ORDERED: GABA300C PO (07:44)
[2023-03-03] MEDS ORDERED: HYDR-3421 PO (07:44)
[2023-03-03] MEDS ORDERED: IBUP-2071 PO (07:44)
[2023-03-03] MEDS ORDERED: VALA100031 PO (07:44)
[2023-03-03] MEDS ORDERED: CETI-89 PO (07:49)
[2023-03-03] MEDS ORDERED: FLUT16H NASAL (07:49)
[2023-03-03] MEDS ORDERED: CYAN250014 PO (07:49)
[2023-03-03] MEDS ORDERED: VITAD50000 PO (07:49)
[2023-03-03] MEDS ORDERED: ASPI-1197 PO (07:51)
[2023-03-03] MEDS ORDERED: LEVO125C4 PO (07:51)
[2023-03-03] MEDS: VALACYCLOVIR HCL 500 MG TABLET PO SCH ×3 (08:53→20:10)
[2023-03-03] MEDS: MIDAZOLAM 50MG-0.9% NS 50ML 50 ML IV SCH ×2 (09:02→22:19)
[2023-03-03] MEDS: HYDROCORTISONE SOD SUCCINATE 100 MG/2 ML VIAL IV SCH ×3 (09:02→20:10)
[2023-03-03] MEDS ORDERED: DOPAMINE HCL 400 MG/D5%-WATER 250 ML IV ONE (10:43)
[2023-03-03 10:50] LABS: INR 0.93 (0.85-1.15); PROTHROMBIN TIME 9.8 SEC (9.6-11.6)
[2023-03-03 10:59] LABS: ABG BASE EXCESS -9.1 mmol/L (-2.0-3.0); ABG HCO3 18.1 mmol/L (21.0-28.0); ABG PCO2 44 mmHg (32-45)
[2023-03-03] MEDS ORDERED: DOPAMINE HCL 400 MG/D5%-WATER 250 ML IV PRN (11:00)
[2023-03-03] MEDS ORDERED: SODIUM BICARB 50MEQ 50ML VIAL IV SCH (11:04)
[2023-03-03] MEDS ORDERED: SODIUM BICARB 50MEQ 50ML VIAL 50 ML ONE (11:09)
[2023-03-03 11:24] LABS: PARTIAL THROMBOPLASTIN TIME 28.2 SEC (26.3-35.5)
[2023-03-03] MEDS: SODIUM BICARB 8.4% 50ML SYRING 150 MEQ in DEXTROSE 5%-WATER 1,000 ML IVP SCH ×2 (11:45→22:21)
[2023-03-03 14:35] LABS: APPEARANCE,URINE CLEAR (CLEAR); BILIRUBIN,URINE NEGATIVE (NEGATIVE); COLOR,URINE COLORLESS (YELLOW); GLUCOSE, URINE (UA) 70 mg/dL (NEGATIVE); KETONES,URINE NEGATIVE (NEGATIVE); LEUKOCYTE ESTERASE ,URINE NEGATIVE Leu/uL (NEGATIVE); NITRATE,URINE NEGATIVE (NEGATIVE); PROTEIN,URINE 10 mg/dL (NEGATIVE); UROBILINOGEN,URINE 0.2 mg/dL (0.2-1.0)
[2023-03-03 14:52] LABS: BACTERIA,URINE FEW /HPF (None Seen); MUCUS,URINE RARE LPF (None Seen)
[2023-03-03 16:02] LABS: ABG BASE EXCESS -5.5 mmol/L (-2.0-3.0); ABG HCO3 21.3 mmol/L (21.0-28.0); ABG OXYGEN SATURATION 95.3 % (95.0-99.0); ABG PCO2 47 mmHg (32-45)
[2023-03-03] MEDS ORDERED: PHARMACY COMMUNICATION MISC SCH (19:30)
[2023-03-03 22:53] LABS: ABG BASE EXCESS -0.2 mmol/L (-2.0-3.0); ABG HCO3 24.2 mmol/L (21.0-28.0); ABG OXYGEN SATURATION 96.6 % (95.0-99.0); ABG PCO2 39 mmHg (32-45)
[2023-03-04] VITALS (52 sets, daily range): BP systolic 81–197; BP diastolic 41–115
[2023-03-04 00:36] LABS: ABG BASE EXCESS -1.3 mmol/L (-2.0-3.0); ABG HCO3 23.4 mmol/L (21.0-28.0); ABG OXYGEN SATURATION 97.1 % (95.0-99.0); ABG PCO2 40 mmHg (32-45)
[2023-03-04] MEDS ORDERED: VANCOMYCIN 1G VIAL IVPB SCH (01:00)
[2023-03-04] MEDS ORDERED: VANCOMYCIN 1G/250ML KIT 250 ML IV ONE (01:02)
[2023-03-04] MEDS: HYDROCORTISONE SOD SUCCINATE 100 MG/2 ML VIAL IV SCH ×2 (01:07→08:08)
[2023-03-04 03:52] LABS: BASOPHILS % (AUTO) 0.2 % (0.0-5.0); HEMATOCRIT 34.8 % (36-48); LYMPHOCYTES % (AUTO) 13.1 % (21.0-51.0); MEAN CORPUSCULAR HEMOGLOBIN 31.2 pg (27.0-33.0); MEAN CORPUSCULAR HGB CONC 34.2 g/dL (32.0-36.0); MEAN CORPUSCULAR VOLUME 91.3 fL (79-99); MONOCYTES % (AUTO) 3.8 % (3.0-13.0); NEUTROPHILS % (AUTO) 82.2 % (40.0-77.0); PLATELET COUNT (AUTO) 148 K/uL (130-400); RED BLOOD CELL COUNT(AUTO) 3.81 MIL/uL (4.00-5.50); RED CELL DISTRIBUTION WIDTH 12.8 % (11.0-15.5); WHITE BLOOD COUNT (AUTO) 8.4 K/uL (4.8-10.8)
[2023-03-04 04:05] LABS: ALBUMIN 2.3 g/dL (3.5-5.0); CREATININE 0.8 mg/dL (0.5-1.5); POTASSIUM 3.1 mmol/L (3.5-5.1)
[2023-03-04] MEDS ORDERED: ONDANSETRON 4MG INJ ONE (04:24)
[2023-03-04] MEDS: LEVOTHYROXINE 112 MCG TABLET PO SCH (05:32)
[2023-03-04] MEDS ORDERED: DIPHENHYDRAMINE 2% CREAM 30 GM TP PRN (06:30)
[2023-03-04] MEDS: VALACYCLOVIR HCL 500 MG TABLET PO SCH ×5 (08:09→20:30)
[2023-03-04] MEDS: POTASSIUM CHLORIDE 20MEQ/100ML 100 ML IV PRN ×2 (08:52→10:59)
[2023-03-04] MEDS ORDERED: METOPROLOL TARTRATE 25 MG TAB PO SCH (10:00)
[2023-03-04] MEDS: FLUTICASONE PROPIONATE 50MCG/SPRAY 16 GM BOTTLE NS SCH (10:00)
[2023-03-04] MEDS: HYDRALAZINE 20MG/ML VIAL IV PRN ×2 (10:45→17:24)
[2023-03-04] MEDS: ONDANSETRON 4MG INJ IVP PRN ×2 (10:45→18:43)
[2023-03-04] MEDS ORDERED: VANCOMYCIN PROTOCOL PER PHARMACY IV SCH (11:00)
[2023-03-04] MEDS: LISINOPRIL 10 MG TABLET PO SCH (11:25)
[2023-03-04] MEDS: AMLODIPINE 5 MG TAB PO SCH (13:43)
[2023-03-04] MEDS ORDERED: GABAPENTIN 300 MG CAPSULE PO SCH (14:00)
[2023-03-04] MEDS ORDERED: PROMETHAZINE HCL 25 MG/ML 1ML AMPULE IM PRN (15:00)
[2023-03-04] MEDS ORDERED: METOPROLOL TARTRATE 25 MG TAB ONE (15:27)
[2023-03-04] MEDS: METOPROLOL TARTRATE 25 MG TAB PO SCH ×2 (15:52→20:15)
[2023-03-04] MEDS ORDERED: NICARDIPINE 25MG INJ 50 MG in 0.9% NACL 250ML 230 ML IV SCH (18:30)
[2023-03-04] MEDS: GABAPENTIN 100 MG CAPSULE PO SCH ×2 (20:14→20:30)
[2023-03-05] VITALS (24 sets, daily range): BP systolic 115–156; BP diastolic 51–90
[2023-03-05] MEDS ORDERED: VANCOMYCIN KIT 1 GM/250 ML IV.KIT IV SCH (01:00)
[2023-03-05 04:16] LABS: ALBUMIN 2.8 g/dL (3.5-5.0); CREATININE 0.7 mg/dL (0.5-1.5); POTASSIUM 3.2 mmol/L (3.5-5.1); TOTAL PROTEIN, SERUM 5.9 g/dL (6.0-8.3)
[2023-03-05 04:38] LABS: BASOPHILS % (AUTO) 0.4 % (0.0-5.0); HEMATOCRIT 38.4 % (36-48); LYMPHOCYTES % (AUTO) 16.4 % (21.0-51.0); MEAN CORPUSCULAR HEMOGLOBIN 31.3 pg (27.0-33.0); MEAN CORPUSCULAR HGB CONC 34.6 g/dL (32.0-36.0); MEAN CORPUSCULAR VOLUME 90.4 fL (79-99); MONOCYTES % (AUTO) 5.7 % (3.0-13.0); NEUTROPHILS % (AUTO) 76.5 % (40.0-77.0); PLATELET COUNT (AUTO) 153 K/uL (130-400); RED BLOOD CELL COUNT(AUTO) 4.25 MIL/uL (4.00-5.50); RED CELL DISTRIBUTION WIDTH 12.8 % (11.0-15.5); WHITE BLOOD COUNT (AUTO) 9.8 K/uL (4.8-10.8)
[2023-03-05] MEDS: LEVOTHYROXINE 112 MCG TABLET PO SCH (05:22)
[2023-03-05] MEDS: POTASSIUM CHLORIDE 20MEQ/100ML 100 ML IV PRN ×2 (05:23→08:25)
[2023-03-05] MEDS ORDERED: PANTOPRAZOLE 40 MG TAB DR PO SCH (07:30)
[2023-03-05] MEDS: AMLODIPINE 5 MG TAB PO SCH (07:54)
[2023-03-05] MEDS: LISINOPRIL 10 MG TABLET PO SCH (07:54)
[2023-03-05] MEDS: ASPIRIN 81MG CHEW TAB PO SCH (07:54)
[2023-03-05] MEDS: ONDANSETRON 4MG INJ IVP PRN (07:54)
[2023-03-05] MEDS: CYANOCOBALAMIN (VITAMIN B-12) 1,000 MCG TABLET PO SCH (07:54)
[2023-03-05] MEDS: CETIRIZINE HCL 5 MG TABLET PO SCH (07:54)
[2023-03-05] MEDS: METOPROLOL TARTRATE 25 MG TAB PO SCH ×2 (07:55→20:53)
[2023-03-05] MEDS: GABAPENTIN 100 MG CAPSULE PO SCH ×4 (07:57→21:00)
[2023-03-05] MEDS ORDERED: BISACODYL 5 MG TABLET.DR PO PRN (08:30)
[2023-03-05] MEDS ORDERED: BISACODYL 10 MG SUPP.RECT RC PRN (08:30)
[2023-03-05] MEDS: MAGNESIUM 2GM PREMIX 50ML 50 ML IV PRN (08:41)
[2023-03-05] MEDS: ALPRAZOLAM 0.5 MG TABLET PO PRN (08:41)
[2023-03-05] MEDS ORDERED: AMLODIPINE 5 MG TAB PO SCH (09:00)
[2023-03-05] MEDS: VANCOMYCIN KIT 1 GM/250 ML IV.KIT IV SCH ×2 (10:55→21:00)
[2023-03-05] MEDS: POLYETHYLENE GLYCOL 3350 17 GM POWD.PACK PO SCH (10:55)
[2023-03-05] MEDS: FLUTICASONE PROPIONATE 50MCG/SPRAY 16 GM BOTTLE NS SCH (13:30)
[2023-03-05] MEDS: VALACYCLOVIR HCL 500 MG TABLET PO SCH ×2 (14:19→20:52)
[2023-03-06 03:43] VITALS: BP 173/87
[2023-03-06] MEDS: HYDRALAZINE 20MG/ML VIAL IV PRN (03:47)
[2023-03-06 04:21] LABS: BASOPHILS % (AUTO) 1.1 % (0.0-5.0); EOSINOPHILS % (AUTO) 1.3 % (0.0-8.0); HEMATOCRIT 42.9 % (36-48); LYMPHOCYTES % (AUTO) 20.5 % (21.0-51.0); MEAN CORPUSCULAR HGB CONC 32.6 g/dL (32.0-36.0); MEAN CORPUSCULAR VOLUME 94.9 fL (79-99); MONOCYTES % (AUTO) 5.5 % (3.0-13.0); NEUTROPHILS % (AUTO) 70.6 % (40.0-77.0); PLATELET COUNT (AUTO) 115 K/uL (130-400); RED BLOOD CELL COUNT(AUTO) 4.52 MIL/uL (4.00-5.50); RED CELL DISTRIBUTION WIDTH 12.8 % (11.0-15.5); WHITE BLOOD COUNT (AUTO) 7.1 K/uL (4.8-10.8)
[2023-03-06 04:41] LABS: ALBUMIN 2.6 g/dL (3.5-5.0); CREATININE 0.7 mg/dL (0.5-1.5); MAGNESIUM 1.8 mg/dL (1.80-2.40); POTASSIUM 3.3 mmol/L (3.5-5.1); TOTAL PROTEIN, SERUM 5.9 g/dL (6.0-8.3)
[2023-03-06] MEDS: ALPRAZOLAM 0.5 MG TABLET PO PRN (04:43)
[2023-03-06] MEDS: POTASSIUM CHLORIDE 20MEQ/100ML 100 ML IV PRN ×2 (04:55→06:33)
[2023-03-06] MEDS: MAGNESIUM 2GM PREMIX 50ML 50 ML IV PRN (04:56)
[2023-03-06] MEDS ORDERED: LEVOTHYROXINE 112 MCG TABLET PO SCH (06:30)
[2023-03-06 08:00] VITALS: BP 156/85
[2023-03-06] MEDS: AMLODIPINE 5 MG TAB PO SCH (08:02)
[2023-03-06] MEDS: POLYETHYLENE GLYCOL 3350 17 GM POWD.PACK PO SCH (08:02)
[2023-03-06] MEDS: ASPIRIN 81MG CHEW TAB PO SCH (08:02)
[2023-03-06] MEDS: CETIRIZINE HCL 5 MG TABLET PO SCH (08:02)
[2023-03-06] MEDS: METOPROLOL TARTRATE 25 MG TAB PO SCH (08:03)
[2023-03-06] MEDS: CYANOCOBALAMIN (VITAMIN B-12) 1,000 MCG TABLET PO SCH (08:03)
[2023-03-06] MEDS: LISINOPRIL 10 MG TABLET PO SCH (08:03)
[2023-03-06] MEDS: GABAPENTIN 100 MG CAPSULE PO SCH (08:06)
[2023-03-06] MEDS: FLUTICASONE PROPIONATE 50MCG/SPRAY 16 GM BOTTLE NS SCH (08:06)
[2023-03-06] MEDS ORDERED: ERGOCALCIFEROL (VITAMIN D2) 50,000 UNIT CAPSULE PO ONE (09:00)
[2023-03-06] MEDS: VANCOMYCIN KIT 1 GM/250 ML IV.KIT IV SCH (10:19)
[2023-03-16] MEDS ORDERED: ERGOCALCIFEROL (VITAMIN D2) 50,000 UNIT CAPSULE PO ONE (09:00)
== END 2023-03-06 11:30 | disposition home or self-care (01) | DRG 871 ==
LOC: EDH 22:57 → EDHIP 03-03 01:06 → 2BH 03-03 08:15 → 2DH 03-05 17:15
PROVIDERS: ADMIT Internal Medicine; ATTEND Internal Medicine
PROC: 5A1945Z Respiratory Ventilation, 24-96 Consecutive Hours (ICD-10-PCS; 2023-03-02)
PROC: 0BH17EZ Insertion of Endotracheal Airway into Trachea, Via Natural or Artificial Opening (ICD-10-PCS; 2023-03-02)
PROC: 02HV33Z Insertion of Infusion Device into Superior Vena Cava, Percutaneous Approach (ICD-10-PCS; principal; 2023-03-03)
DX: A41.9 Sepsis, unspecified organism (principal); G93.41 Metabolic encephalopathy; J96.02 Acute respiratory failure with hypercapnia; J96.01 Acute respiratory failure with hypoxia; R65.21 Severe sepsis with septic shock; E87.1 Hypo-osmolality and hyponatremia; N17.9 Acute kidney failure, unspecified; I16.1 Hypertensive emergency; Z96.652 Presence of left artificial knee joint; E03.9 Hypothyroidism, unspecified; E87.6 Hypokalemia; F41.9 Anxiety disorder, unspecified; I10 Essential (primary) hypertension; I48.91 Unspecified atrial fibrillation; M15.9 Polyosteoarthritis, unspecified; Z79.899 Other long term (current) drug therapy; Z82.49 Family history of ischemic heart disease and other diseases of the circulatory system; Z86.19 Personal history of other infectious and parasitic diseases; Z90.710 Acquired absence of both cervix and uterus
CPT/HCPCS: 36415; 36600; 70450; 71045; 71275; 74018; 74174; 80053; 80202; 81001; 81003; 82435; 82550; 82803; 82947; 83605; 83735; 83874; 83880; 84132; 84295; 84439; 84443; 84481; 84484; 85018; 85025; 85610; 85730; 87040; 87088; 87635; 87804; 93005; 93306; 93356; 94002; 94003; 99291; 99292; C1751; C1894; G0378; J0360; J1265; J1720; J2250; J2370; J2405; J2543; J2550; J3010; J3370; J3475; J3480; J3490; J7050; J7070; Q9967

== ENCOUNTER → 2023-03-23 | Outpatient (CLI) | payer OTHER, MEDICARE ==
[~2023-03-23] MED LIST changes: -APIX2.5T PO; +ASPI-1197 PO; +CETI-89 PO; +CYAN250014 PO; +FLUT16H NASAL; +HYDR-3421 PO; -HYDR25TA PO; -IBUP-1493 PO; +IBUP-2071 PO; -LEVO112T4 PO; +LEVO125C4 PO; -VALA10002 PO; +VALA100031 PO; +VITAD50000 PO
[2023-03-23 10:12] LABS: HEMATOCRIT 44.9 % (36-48); LYMPHOCYTES % (AUTO) 20.1 % (21.0-51.0); MEAN CORPUSCULAR HEMOGLOBIN 30.8 pg (27.0-33.0); MEAN CORPUSCULAR HGB CONC 32.1 g/dL (32.0-36.0); MEAN CORPUSCULAR VOLUME 95.9 fL (79-99); MONOCYTES % (AUTO) 6.3 % (3.0-13.0); PLATELET COUNT (AUTO) 294 K/uL (130-400); RED BLOOD CELL COUNT(AUTO) 4.68 MIL/uL (4.00-5.50); RED CELL DISTRIBUTION WIDTH 13.6 % (11.0-15.5); WHITE BLOOD COUNT (AUTO) 6.9 K/uL (4.8-10.8)
[2023-03-23 10:19] LABS: HEMOGLOBIN A1C 5.2 % (4.0-6.0)
[2023-03-23 10:41] LABS: ALBUMIN 3.7 g/dL (3.5-5.0); BILIRUBIN,DIRECT 0.1 mg/dL (0.0-0.3); CREATININE 0.9 mg/dL (0.5-1.5); PHOSPHORUS 3.6 mg/dL (2.5-4.9); POTASSIUM 4.4 mmol/L (3.5-5.1); THYROID STIMULATING HORMONE 0.73 uIU/mL (0.36-3.74); TOTAL PROTEIN, SERUM 7.2 g/dL (6.0-8.3)
== END | disposition home or self-care (01) ==
LOC: LAB 09:26
PROVIDERS: ATTEND Internal Medicine
DX: Z13.1 Encounter for screening for diabetes mellitus (principal); E55.9 Vitamin D deficiency, unspecified; E03.8 Other specified hypothyroidism; M81.8 Other osteoporosis without current pathological fracture; E03.9 Hypothyroidism, unspecified; E78.5 Hyperlipidemia, unspecified; G45.8 Other transient cerebral ischemic attacks and related syndromes; I10 Essential (primary) hypertension
CPT/HCPCS: 36415; 80053; 80061; 80069; 80076; 82043; 82306; 82570; 83036; 84439; 84443; 85025

== ENCOUNTER → 2023-07-05 | Outpatient (CLI) | payer MEDICARE | END | disposition home or self-care (01) | LOC: RAH 15:04 | PROVIDERS: ATTEND Internal Medicine | DX: Z12.31 Encounter for screening mammogram for malignant neoplasm of breast (principal) | CPT/HCPCS: 77067 ==

== ENCOUNTER → 2023-07-12 | Outpatient (CLI) | payer MEDICARE | END | disposition home or self-care (01) | LOC: RAH 13:04 | PROVIDERS: ATTEND Internal Medicine Endocrinology, Diabetes & Metabolism | DX: E04.2 Nontoxic multinodular goiter (principal) | CPT/HCPCS: 76536 ==

== ENCOUNTER → 2023-07-13 | Outpatient (CLI) | payer MEDICARE ==
[2023-07-13 08:48] LABS: BASOPHILS # (AUTO) 0.06 K/uL (0.00-0.20); BASOPHILS % (AUTO) 0.9 % (0.0-5.0); EOSINOPHILS # (AUTO) 0.19 K/uL (0.00-0.70); EOSINOPHILS % (AUTO) 2.9 % (0.0-8.0); HEMATOCRIT 44.4 % (36-48); IMMATURE GRANULOCYTE ABSOLUTE 0.02 K/uL (0-1); LYMPHOCYTES # (AUTO) 1.4 K/uL (1.0-4.8); LYMPHOCYTES % (AUTO) 22.1 % (21.0-51.0); MEAN CORPUSCULAR HGB CONC 33.6 g/dL (32.0-36.0); MEAN CORPUSCULAR VOLUME 92.5 fL (79-99); MONOCYTES # (AUTO) 0.4 K/uL (0.1-1.0); MONOCYTES % (AUTO) 6.3 % (3.0-13.0); NEUTROPHILS # (AUTO) 4.4 K/uL (1.8-7.7); NEUTROPHILS % (AUTO) 67.5 % (40.0-77.0); PLATELET COUNT (AUTO) 244 K/uL (130-400); RED CELL DISTRIBUTION WIDTH 12.6 % (11.0-15.5); WHITE BLOOD COUNT (AUTO) 6.5 K/uL (4.8-10.8)
[2023-07-13 09:16] LABS: ALBUMIN 3.6 g/dL (3.5-5.0); BILIRUBIN,DIRECT 0.1 mg/dL (0.0-0.3); BILIRUBIN,TOTAL 0.7 mg/dL (0.2-1.0); CREATININE 0.9 mg/dL (0.5-1.5); POTASSIUM 4.2 mmol/L (3.5-5.1); T4 (THYROXINE) 12.6 ug/dL (4.7-13.3); THYROID STIMULATING HORMONE 0.24 uIU/mL (0.36-3.74); TOTAL PROTEIN, SERUM 7.3 g/dL (6.0-8.3)
== END | disposition home or self-care (01) ==
LOC: LAB 08:09
PROVIDERS: ATTEND Internal Medicine Endocrinology, Diabetes & Metabolism
DX: J20.9 Acute bronchitis, unspecified (principal); F41.8 Other specified anxiety disorders; I10 Essential (primary) hypertension; E78.5 Hyperlipidemia, unspecified; E55.9 Vitamin D deficiency, unspecified; E03.8 Other specified hypothyroidism; M81.8 Other osteoporosis without current pathological fracture
CPT/HCPCS: 36415; 80053; 80061; 80069; 80076; 82248; 82306; 84436; 84439; 84443; 85025

== ENCOUNTER → 2023-10-18 | Outpatient (CLI) | payer MEDICARE ==
[2023-10-18 09:17] LABS: BASOPHILS # (AUTO) 0.05 K/uL (0.00-0.20); BASOPHILS % (AUTO) 0.8 % (0.0-5.0); EOSINOPHILS # (AUTO) 0.22 K/uL (0.00-0.70); EOSINOPHILS % (AUTO) 3.4 % (0.0-8.0); HEMATOCRIT 45.5 % (36-48); IMMATURE GRANULOCYTE ABSOLUTE 0.02 K/uL (0-1); LYMPHOCYTES # (AUTO) 1.4 K/uL (1.0-4.8); LYMPHOCYTES % (AUTO) 21.4 % (21.0-51.0); MEAN CORPUSCULAR HEMOGLOBIN 31.4 pg (27.0-33.0); MEAN CORPUSCULAR VOLUME 95.2 fL (79-99); MONOCYTES # (AUTO) 0.4 K/uL (0.1-1.0); MONOCYTES % (AUTO) 6.4 % (3.0-13.0); NEUTROPHILS # (AUTO) 4.3 K/uL (1.8-7.7); NEUTROPHILS % (AUTO) 67.7 % (40.0-77.0); PLATELET COUNT (AUTO) 229 K/uL (130-400); RED BLOOD CELL COUNT(AUTO) 4.78 MIL/uL (4.00-5.50); RED CELL DISTRIBUTION WIDTH 13.2 % (11.0-15.5); WHITE BLOOD COUNT (AUTO) 6.4 K/uL (4.8-10.8)
[2023-10-18 09:25] LABS: HEMOGLOBIN A1C 5.3 % (4.0-6.0)
[2023-10-18 09:37] LABS: ALBUMIN 3.6 g/dL (3.5-5.0); BILIRUBIN,DIRECT 0.1 mg/dL (0.0-0.3); BILIRUBIN,TOTAL 0.6 mg/dL (0.2-1.0); PHOSPHORUS 3.3 mg/dL (2.5-4.9); POTASSIUM 3.9 mmol/L (3.5-5.1); TOTAL PROTEIN, SERUM 7.1 g/dL (6.0-8.3)
== END | disposition home or self-care (01) ==
LOC: LAB 08:22
PROVIDERS: ATTEND Internal Medicine
DX: Z13.1 Encounter for screening for diabetes mellitus (principal); B02.29 Other postherpetic nervous system involvement; E78.5 Hyperlipidemia, unspecified; I10 Essential (primary) hypertension; J06.9 Acute upper respiratory infection, unspecified; J45.901 Unspecified asthma with (acute) exacerbation; K76.89 Other specified diseases of liver; M13.89 Other specified arthritis, multiple sites; R53.83 Other fatigue; E55.9 Vitamin D deficiency, unspecified; M85.9 Disorder of bone density and structure, unspecified; E03.8 Other specified hypothyroidism; Z79.899 Other long term (current) drug therapy
CPT/HCPCS: 36415; 80053; 80061; 80069; 80076; 82043; 82248; 82306; 82570; 83036; 84100; 84439; 84443; 85025

== ENCOUNTER → 2024-04-14 | Outpatient (CLI) | payer MEDICARE ==
[2024-04-14 09:01] LABS: BASOPHILS # (AUTO) 0.04 K/uL (0.00-0.20); BASOPHILS % (AUTO) 0.6 % (0.0-5.0); EOSINOPHILS # (AUTO) 0.21 K/uL (0.00-0.70); EOSINOPHILS % (AUTO) 3.3 % (0.0-8.0); HEMATOCRIT 43.9 % (36-48); IMMATURE GRANULOCYTE ABSOLUTE 0.02 K/uL (0-1); LYMPHOCYTES # (AUTO) 1.4 K/uL (1.0-4.8); LYMPHOCYTES % (AUTO) 22.1 % (21.0-51.0); MEAN CORPUSCULAR HGB CONC 33.7 g/dL (32.0-36.0); MEAN CORPUSCULAR VOLUME 91.8 fL (79-99); MONOCYTES # (AUTO) 0.4 K/uL (0.1-1.0); MONOCYTES % (AUTO) 6.2 % (3.0-13.0); NEUTROPHILS # (AUTO) 4.2 K/uL (1.8-7.7); NEUTROPHILS % (AUTO) 67.5 % (40.0-77.0); PLATELET COUNT (AUTO) 239 K/uL (130-400); RED BLOOD CELL COUNT(AUTO) 4.78 MIL/uL (4.00-5.50); RED CELL DISTRIBUTION WIDTH 13.4 % (11.0-15.5); WHITE BLOOD COUNT (AUTO) 6.3 K/uL (4.8-10.8)
[2024-04-14 09:14] LABS: HEMOGLOBIN A1C 5.6 % (4.0-6.0)
[2024-04-14 09:49] LABS: ALBUMIN 3.5 g/dL (3.5-5.0); BILIRUBIN,DIRECT 0.1 mg/dL (0.0-0.3); BILIRUBIN,TOTAL 0.7 mg/dL (0.2-1.0); PHOSPHORUS 3.7 mg/dL (2.5-4.9); POTASSIUM 4.2 mmol/L (3.5-5.1); THYROID STIMULATING HORMONE 2.19 uIU/mL (0.36-3.74)
== END | disposition home or self-care (01) ==
LOC: LAB 08:14
PROVIDERS: ATTEND Internal Medicine Endocrinology, Diabetes & Metabolism
DX: Z13.1 Encounter for screening for diabetes mellitus (principal); Z13.31 Encounter for screening for depression; E55.9 Vitamin D deficiency, unspecified; E03.8 Other specified hypothyroidism; K76.89 Other specified diseases of liver; I51.9 Heart disease, unspecified; E78.5 Hyperlipidemia, unspecified; M47.12 Other spondylosis with myelopathy, cervical region; I10 Essential (primary) hypertension; R53.83 Other fatigue; F15.90 Other stimulant use, unspecified, uncomplicated; M85.00 Fibrous dysplasia (monostotic), unspecified site; Z79.899 Other long term (current) drug therapy
CPT/HCPCS: 36415; 80053; 80061; 80069; 80076; 82248; 82306; 82570; 82607; 83036; 84439; 84443; 85025

== ENCOUNTER 2025-07-29 07:50 | Emergency (ER) | payer OTHER, MEDICARE ==
[~2025-07-29] VITALS: Ht 154.9 cm; Wt 77.1 kg
[~2025-07-29 07:50] MED LIST changes: -LEVO125C4 PO; +LEVO125C5 PO
[2025-07-29 08:40] LABS: COVID19 (SARS ANTIGEN RAPID) PRESUMPTIVE NEGATIVE (NEGATIVE); INFLUENZA TYPE B Negative For Type B (NEGATIVE)
[2025-07-29 08:47] LABS: INFLUENZA TYPE A Positive For Type A (NEGATIVE)
--- NOTE | 2025-07-29 08:56 | ERN ---
General Chief Complaint: Flu Symptoms Stated Complaint: FLU Time Seen by MD: 07:57 History of Present Illness Initial Comments 79-year-old female history of TIA here for evaluation body aches since yesterday. Patient took an at-home flu/COVID test which tested positive for flu. She is here today to get a chest x-ray to rule out any pneumonia. Allergies: Coded Allergies: No Known Drug Allergies (Unverified Allergy, 08/08/12) Home Meds Active Scripts Lisinopril (Lisinopril) 10 Mg Tablet, 10 MG PO DAILY for 90 Days, #90 TAB Prov:KIMBERLY DE GUZMAN Jr., MD 03/19/20 Reported Medications Aspirin (Aspirin) 81 Mg Tab.chew, 81 MG PO DAILY, TAB.CHEW 03/03/23 Levothyroxine Sodium (Levothyroxine) 125 Mcg Capsule, 125 MCG PO DAILY, CAP 03/03/23 Fluticasone Propionate (Flonase Nasal [place]) 50 Mcg/[place], 50 MCG NASAL DAILY, SPRAY 03/03/23 Cetirizine HCl (Zyrtec) 10 Mg Tablet, 10 MG PO DAILY, TAB 03/03/23 Cyanocobalamin (Vitamin B-12) (Vitamin B12) 2,500 Mcg Tab.chew, 3000 MCG PO DAILY, TAB.CHEW 03/03/23 Cholecalciferol (Vitamin D3) 50,000 Units Cap, 60604 UNITS PO EVERY 10 DAYS, CAP 03/03/23 Hydroxyzine HCl (Hydroxyzine HCl) 25 Mg Tablet, 12.5 MG PO BID, TAB 03/03/23 Gabapentin (Neurontin) 300 Mg Capsule, 300 MG PO TID, CAP 03/03/23 Ibuprofen (Ibuprofen) 800 Mg Tablet, 800 MG PO TID PRN for PAIN, TAB 03/03/23 Valacyclovir HCl (Valacyclovir) 1,000 Mg Tablet, 1000 MG PO TID, TAB 03/03/23 Metoprolol Tartrate (Lopressor) 25 Mg Tab, 25 MG PO BID, TAB 03/18/20 Past Medical History Past Medical History: High Cholesterol, Hypertension, TIA Medical History Other: SHINGLES Past Surgical History: Hysterectomy Surgical History Other: LT KNEE SX Family History Family History: HTN Social History Social History: Negative Constitutional: (+) chills, (+) fever Musculoskeletal: (+) muscle pain Review of Systems: was completed, & the rest were negative. Physical Exam Physical Exam Dictation GENERAL APPEARANCE NAD, activity normal for age, well developed/ well nourished, no cyanosis, pallor, or diaphoresis. EYES lids/conjunctiva normal. EARS/NOSE/THROAT Mucous membranes moist, nares normal, lips/teeth normal uvula midline without oral pharyngeal erythema, exudate or swelling TMs normal bilaterally. No lymphangitis/lymphedema. HEAD/NECK normocephalic atraumatic, no facial trauma, neck is supple. RESPIRATORY respiratory effort normal, speaks in full sentences, no tripod position, no accessory muscle use. Lungs clear to auscultation without rhonchi, wheezes, rales CARDIAC Regular rate and rhythm, no edema. ABDOMINAL Soft, ND/NT. No evidence of fluid wave. No pulsatile masses on exam, rebound tenderness, Guillen sign or pain over Mcburney's point. MUSCLES/EXTREMITIES No abnormal range of motion, no swelling. SKIN Warm, pink and dry. No rashes, dermatoses, petechiae or lesions. NEUROLOGICAL Speech is clear and appropriate. Normal level of consciousness. Gait and coordination are normal. 5/5 strength in all extremities. PSYCH Normal mood and affect. Judgement/competence is appropriate Results Laboratory and Microbiology Lab and Micro Result Laboratory Tests Test 07/29/25 08:00 Influenza Type A Antigen Positive For Type A Influenza Type B Antigen Negative For Type B SARS-CoV-2 Antigen (Rapid) PRESUMPTIVE NEGATIVE EKG/XRAY/US/CT/MRI X-RAY Comment Negative for acute processes. We will discharge home at this time MDM 79-year-old female here for evaluation of myalgias. Flu A positive. I offered her Tamiflu and other medications however she states that she does not want that medication as it makes her feel bad. I offered her other alternatives including Xofluza however she is refusing it. We will get a chest x-ray for her peace of mind. Disposition pending results of chest x-ray. We will discharge home Patient's prior external medical records from other ER visits were reviewed by me as indicated. Prior testing and results from previous visits were reviewed. Prior tests were taken into account with medical decision making and resource utilization, independent historian/historians were used to obtain complete medical history. I independently interpreted the test that were performed, results were reviewed by me and considered findings on radiology if ordered. Medical management and examination interpretation discussions were had by me with other qualified healthcare professionals as indicated for the patient's care. Labs and imaging reviewed with patient. All questions answered at this time. Patient advised to follow up with primary care physician in the next few days. Patient well-appearing, no acute distress. Vital signs stable. Will discharge at this time. ED Course Orders Procedure Category Date Status Time Influenza Type A & B, LAB 07/29/25 Complete Rapid 07:58 Covid19 (Sars Antigen LAB 07/29/25 Complete Rapid) 07:58 Chest 1vw RAD 07/29/25 Resulted 08:53 Vital Signs Date Time Temp Pulse Resp B/P (MAP) Pulse Ox O2 Delivery O2 Flow Rate FiO2 07/29/25 09:13 97.5 97 18 145/75 Room Air* 0 21 07/29/25 07:52 97.9 84 18 147/79 96 Room Air DX & DISP Disposition: Discharge Departure Impression: Primary Impression: Influenza A Additional Impression: URI (upper respiratory infection) Condition: Stable Referrals: REGLA PINEDA MD (PCP) LONG HARMON MD Jul 29, 2025 08:56
--- NOTE | 2025-07-29 09:57 | HMCIMG ---
EXAM: CR Chest, 1 View. CLINICAL HISTORY: +flu-a. R/o pna COMPARISON: None provided. FINDINGS: LUNGS: The lungs show no infiltrate or other acute finding. PLEURAL SPACES: No evidence of pleural effusion or pneumothorax. MEDIASTINUM: The cardiomediastinal silhouette is within normal limits. BONES: No aggressive appearing osseous lesion seen. IMPRESSION: No acute cardiopulmonary pathology is evident. /[place]
[2025-07-29 10:10] VITALS: BP 139/74; PULSE 98; RESP 19; TEMP 97.5; O2SAT 69
== END 2025-07-29 10:16 | disposition home or self-care (01) ==
LOC: EDH 07:50
DX: J10.1 Influenza due to other identified influenza virus with other respiratory manifestations (principal); I10 Essential (primary) hypertension; E78.00 Pure hypercholesterolemia, unspecified; Z79.624 Long term (current) use of inhibitors of nucleotide synthesis; Z79.82 Long term (current) use of aspirin; Z79.899 Other long term (current) drug therapy; Z79.890 Hormone replacement therapy; Z86.73 Personal history of transient ischemic attack (TIA), and cerebral infarction without residual deficits; Z90.710 Acquired absence of both cervix and uterus; Z20.822 Contact with and (suspected) exposure to COVID-19
CPT/HCPCS: 71045; 87426; 87804; 99284